=== PATIENT | female | born 1990 | race Caucasian/White ===

== ENCOUNTER 2016-10-03 18:05 | Emergency (ER) | payer OTHER ==
[~2016-10-03] VITALS: Ht 160 cm; Wt 56.8 kg
[~2016-10-03 18:05] MED LIST: DOCU-41 PO; IBUP-1827 PO; MULT1TAB32 PO; ONDA8TAB10 PO; OXYC1TAB24 PO; POLY17PO6 PO; [UNRECOGNIZED DRUG - OTHER]; primrose oil
[2016-10-03 18:14] VITALS: BP 137/93; PULSE 63; RESP 20; O2SAT 100
--- NOTE | 2016-10-03 19:42 | ED.REPORT ---
HPI- Female Date of Service October 03, 2016 ED Provider: Darnell Brown DO Patient is a 25 year old female who presents to the ED complaining of lower abdominal pain onset two days ago. Associated symptoms include bilateral flank pain, vaginal spotting for the past two months, diaphoresis, chills and fever. She reports that she had an 2 months ago and than an IUD placed and has been having the pain since. Prior to arrival to the ED, the patient took 800mg at 1600. Nursing Notes Stated Complaint: VAGINAL PAIN DUE TO IUD Chief Complaint: Female Abdominal Pain Nursing Notes Reviewed: Yes Allergies: Coded Allergies: No Known Allergies (Unverified , 01/14/16) Scheduled ([primrose oil ]) 1-2XD Docusate Sodium (Colace) 100 Mg Capsule 100 MG PO BID Multivitamins W-Iron (Daily Vitamin W/Iron) 1 Each Tablet 1 EACH PO DAILY Scheduled PRN Ibuprofen (Ibuprofen) 600 Mg Tablet 600 MG PO Q6H PRN PRN For Pain Ondansetron ODT (Ondansetron ODT) 8 Mg Tab.rapdis 8 MG PO Q4H PRN PRN For Nausea Polyethylene Glycol 3350 (Miralax) 17 Gm Powd.pack 17 GM PO DAILY PRN PRN For Constipation oxyCODONE-Acetaminophen 5-325 mg (oxyCODONE-Acetaminophen 5-325 mg) 1 Each Tablet 1-2 TAB PO Q4H PRN PRN For Pain Miscellaneous Medications ([ruth]) General Time Seen by MD: 19:42 Chief Complaint Abdominal pain... Hx Obtained From: Patient Arrived By: Walk-in Sudden in Onset?: No Onset Occurred: 2 days ago Symptom Duration: Since onset Location: : Abdomen lower: Suprapubic Radiation: Flank left Flank right Associated with: Reports: Fever, Nausea Sexual History / Control: Reports IUD Recent Healthcare: No recent hospitalization, Recent doctor visit Past Medical History Past Medical History Small bowel obstruction Past Surgical History Smoking History Current Every Day Smoker Social History Alcohol Use: "Social" Drug Use: THC Other Social History: Good social support Ambulatory Status Independent Review of Systems Constitutional: Reports: Chills, Fever GI: Reports: Abdominal pain, Nausea Female: Reports: Flank pain, Pelvic pain, Vaginal bleeding - abnl, Denies: Skin: Reports Diaphoresis Complete sys rev & neg: except as marked. Respiratory: Denies: Non-productive cough, Shortness of breath Physical Exam Initial Vital Signs Vital Signs (First) Date Time Temp Pulse Resp B/P Pulse Ox O2 Delivery O2 Flow Rate FiO2 10/03/16 18:14 36.6 63 20 137/93 100 Room Air Initial VS: Reviewed Female Genitourinary: Change Coordinator present, Atraumatic, External genitalia NL, No bleeding, No adnexal mass, No adnexal tenderness General/Constitutional: Awake, Alert, No acute distress Respiratory / Chest: Atraumatic, No respiratory distress Cardiovascular: Heart rate NL, Regular rhythm, Heart sounds NL Abdomen: Atraumatic, Soft Tenderness/Guarding/Rebound: Positive: Tender LLQ..., Tender RLQ... Skin: Atraumatic, Color NL, No rash clammy Head / Eyes: Atraumatic, Normocephalic, PERRL, EOMI Neurologic: Oriented X3, Speech NL, No motor deficits, No sensory deficits Psychiatric: Affect NL, Mood NL Interpretation & Diagnostics Interpretation & Diagnostics: OBSTETRICS ULTRASOUND: IMPRESSION: 1. Endometrial thickness is 8mm. No evidence of a mass. IUD in place. 2. Ovaries are normal size. Follicular changes of the right ovary. No adnexal mass or cyst. 3. 12x 7mm rounded lesion in the anterior myometrium is nonspecific but may represent a tiny fibroid. at 2217 Lab Results Interpretation Result Diagram: 10/03/16 2018 10/03/16 2018 Test 10/03/16 19:31 10/03/16 20:18 Hold Urine Received (Received) White Blood Count 7.0th/mm3 (3.8-10.1) Red Blood Count 4.29mil/mm3 (3.90-5.20) Hemoglobin 13.9g/dL (12.0-15.6) Hematocrit 40.5% (35.0-46.0) Mean Corpuscular Volume 94.4fL (81-100) Mean Corpuscular Hemoglobin 32.4pg (27.0-35.0) Mean Corpuscular Hemoglobin Concent 34.3% (32.0-37.0) Red Cell Distribution Width 12.4% (12.3-15.4) Platelet Count 261bil/L (150-400) Neutrophils (%) (Auto) 47.4% (40-74) Lymphocytes (%) (Auto) 42.9% (14-46) Monocytes (%) (Auto) 8.3% (4-12) Eosinophils (%) (Auto) 0.9% (0-5) Basophils (%) (Auto) 0.4% (0-3) Sodium Level 139mEq/L (134-144) Potassium Level 3.6mEq/L (3.5-5.2) Chloride Level 103mEq/L (97-108) Carbon Dioxide Level 22mmol/L (18-29) Blood Urea Nitrogen 8mg/dL (6-20) Creatinine 0.38mg/dL (0.57-1.00) Estimat Glomerular Filtration Rate 291mL/min (>59) Glucose Level 93mg/dL (60-99) Calcium Level 9.0mg/dL (8.5-10.1) Magnesium Level 1.9mg/dL (1.6-2.6) Total Bilirubin 0.8mg/dL (0.0-1.2) Aspartate Amino Transf (AST/SGOT) 19U/L (0-50) Alanine Aminotransferase (ALT/SGPT) 15U/L (0-32) Alkaline Phosphatase 48U/L (25-150) Total Protein 7.0g/dL (6.4-8.4) Albumin 4.3g/dL (3.4-5.0) Lipase 21U/L (13-60) HCG Beta Subunit 0.500mIU/mL Hold Jarvis Top Tube Received (Received) Re-Eval/Medical Decision Med Decision/Clinical Course The IUD was removed and Tracy felt much better. We will place her on doxycycline for possible endometrial infection. Course of opiates for pain. Recommend close outpatient follow-up. Re-Evaluation/Progress #1: Time of Eval: 20:42 Patient Status: Mild relief Re-Evaluation/Progress #2: Time of Eval: 22:02 Re-Evaluation/Progress Note: Discussed ultrasound results and plan for IUD removal awaitring results. The patient understands and agrees to the plan for the IUD removal. All questions were addressed. Re-Evaluation/Progress #3: Time of Eval: 00:38 Re-Evaluation/Progress Note: Discussed plan for follow up and discharge. The patient understands and agrees to the plan. All questions were addressed. Counseled Regarding: Diagnosis, Lab results, Need for follow-up, When/why to return to ED Discharge & Departure Impression: Primary Impression: Pelvic pain Additional Impression: Complication of intrauterine device (IUD) Device complication type: unspecified Encounter type: subsequent encounter Qualified Code: T83.9XXD - Unspecified complication of genitourinary prosthetic device, implant and graft, subsequent encounter Disposition: Home Discharge Condition All VS Reviewed: Yes Condition: Stable Patient Instructions: Intrauterine Device (GEN), Pelvic Pain in Women (ED) Additional Instructions: We have sent a urine sample for specialized testing for sexually transmitted infections. This will be available within 3-4 days. In the meantime take doxycycline twice daily for 7 days. The intrauterine device was successfully removed. You need to use barrier method or other forms of control to prevent . He may take 1-2 [place] every 6 hours as needed for pain. Set up a follow-up with referral tab card press operator to review the ultrasound as well as a send out labs. Return if any problems or any new or worsening symptoms. Do not drive or drink alcohol or consume acetaminophen taking the [place]. Referrals: Hadley Robertson MD (PCP) Cruz Cresw MD Attestation Portions of this note were transcribed by Danielle Urbina. I, Dr. Brown personally performed the history, physical exam and medical decision-making; I reviewed and confirmed the accuracy of the information in the transcribed note. Signed by: Milind Mcdowell, 10/03/16 and [id number] copies to: Hadley Robertson MD; Cruz Crews MD, Todd P DO October 03, 2016 19:42 Kenia Urbina October 03, 2016 19:48
[2016-10-03 20:30] LABS: BASOPHILS % (AUTO) 0.4 % (0-3); EOSINOPHILS % (AUTO) 0.9 % (0-5); MONOCYTES % (AUTO) 8.3 % (4-12); Mean Corpuscular Hemoglobin 32.4 pg (27.0-35.0); Mean Corpuscular Volume 94.4 fL (81-100); NEUTROPHILS % (AUTO) 47.4 % (40-74); Platelet Count 261 bil/L (150-400)
[2016-10-03] MEDS ORDERED: Ondansetron 2 mg/mL 2 mL Inj IVPUSH PRN (20:45)
[2016-10-03] MEDS: HYDROmorphone 0.5 mg/0.5 mL iSecure Syringe IVPUSH PRN ×4 (20:50→23:41)
[2016-10-03 20:51] LABS: Magnesium 1.9 mg/dL (1.6-2.6)
[2016-10-03 20:52] VITALS: BP 130/67; PULSE 54; O2SAT 98
[2016-10-03] MEDS ORDERED: Cefotetan Inj 2,000 MG in IV Premix 1 EACH IV SCH (21:58)
[2016-10-03 22:41] VITALS: BP 132/71; PULSE 58; O2SAT 99
[2016-10-04] MEDS ORDERED: _HYDROcodone/APAP 5-325 mg Tablet PO PRN (00:25)
[2016-10-04 00:52] VITALS: BP 128/70; PULSE 60; RESP 16; O2SAT 100
--- NOTE | 2016-10-04 08:34 | DRSVH ---
PROCEDURE: US PELVIC SONOGRAM + TRANSVAGINAL SONOGRAM INDICATIONS: pelvic pain, TECHNIQUE: Real-time scanning was performed of the pelvic organs, with image documentation. Additional endovagi nal scanning was necessary due to incomplete visualization of the adnexal and endometrial structures by transabdominal scanning. COMPARISON: None. FINDINGS: (orthogonal measurements) Uterus size: 9.19 cm, 2.96 cm, 5.04 cm, 9.72 cm, Endometrium thickness: 7.80 mm Right ovary size: 1.89 cm, 1.89 cm, 2.02 cm, Left ovary size: 3.05 cm, 1.02 cm, 2.10 cm Transabdominal scanning: Limited scanning through the kidneys shows no hydronephrosis. No pathologi c free abdominal or pelvic fluid. Endovaginal scanning: Uterus: Uterus is normal in size and appearance. Endometrium is within normal physiologic limits. Intrauterine device present centrally positioned within the endometrial complex. Subcentimeter anter ior intramural fibroid is present. Ovaries: Within normal physiologic limits, with follicular cysts. IMPRESSION: 1. Intrauterine device present visualized within the central endometrial complex. 2. Subcentimeter anterior intramural fibroid. 3. Follicular cysts bilaterally. Note: These findings are concordant with the preliminary interpretation. Dictated by: Reddy MORROW Interpreted: Ekaterina Hammond MD on 10/04/2016 at 8:31 Transcribed by: LIGIA on 10/04/2016 at 8:34 Approved by: Ekaterina Hammond M.D. on 10/06/2016 at 9:36
[2016-10-04 09:00] LABS: APPEARANCE,URINE CLEAR (CLEAR,HAZY); COLOR,URINE YELLOW (YELLOW); OCCULT BLOOD,URINE NEGATIVE (NEGATIVE); UROBILINOGEN,URINE NORMAL (NORMAL)
== END 2016-10-04 00:53 | disposition home or self-care (01) ==
LOC: SED 18:05
DX: T83.84XA Pain due to genitourinary prosthetic devices, implants and grafts, initial encounter (principal); Y84.6 Urinary catheterization as the cause of abnormal reaction of the patient, or of later complication, without mention of misadventure at the time of the procedure; Y92.89 Other specified places as the place of occurrence of the external cause; Y93.89 Activity, other specified; Y99.8 Other external cause status; F17.200 Nicotine dependence, unspecified, uncomplicated
CPT/HCPCS: 36415; 76830; 76856; 80053; 81000; 81025; 83690; 83735; 84702; 85025; 87491; 87591; 96365; 96375; 96376; 99285; J1170; J2405

== ENCOUNTER 2016-11-14 18:47 | Emergency (ER) | payer OTHER ==
[~2016-11-14] VITALS: Ht 160 cm; Wt 59.1 kg
[2016-11-14 18:58] VITALS: BP 113/75; PULSE 67; RESP 16; O2SAT 97
[2016-11-14 20:56] LABS: BASOPHILS % (AUTO) 0.3 % (0-3); EOSINOPHILS % (AUTO) 2.3 % (0-5); MONOCYTES % (AUTO) 11.7 % (4-12); Mean Corpuscular Hemoglobin 32.7 pg (27.0-35.0); Mean Corpuscular Volume 95.8 fL (81-100); NEUTROPHILS % (AUTO) 50.9 % (40-74); Platelet Count 338 bil/L (150-400)
--- NOTE | 2016-11-14 20:59 | ED.REPORT ---
HPI-Abd Pain F Under 38 Date of Service Nov 14, 2016 ED Provider: Kevin Patrick DO Pt is a 25 year old female with a history of and IUD who presents to the ED complaining of cramping abdominal pain onset 2 days ago. She c/o associated fever, nausea, and vomiting. She denies any other symptoms. The pt reports that she had surgery for bowel obstruction 5 days ago at [place], and was recently discharged. Nursing Notes Stated Complaint: POST-OP ABDOMINAL CRAMPING Chief Complaint: Female Abdominal Pain Nursing Notes Reviewed: Yes Allergies: Coded Allergies: No Known Allergies (Unverified , 01/14/16) Scheduled ([primrose oil ]) 1-2XD Docusate Sodium (Colace) 100 Mg Capsule 100 MG PO BID Multivitamins W-Iron (Daily Vitamin W/Iron) 1 Each Tablet 1 EACH PO DAILY Scheduled PRN Ibuprofen (Ibuprofen) 600 Mg Tablet 600 MG PO Q6H PRN PRN For Pain Ondansetron ODT (Ondansetron ODT) 8 Mg Tab.rapdis 8 MG PO Q4H PRN PRN For Nausea Polyethylene Glycol 3350 (Miralax) 17 Gm Powd.pack 17 GM PO DAILY PRN PRN For Constipation oxyCODONE-Acetaminophen 5-325 mg (oxyCODONE-Acetaminophen 5-325 mg) 1 Each Tablet 1-2 TAB PO Q4H PRN PRN For Pain Miscellaneous Medications ([ruth]) General Time Seen by MD: 20:58 Chief Complaint Abdominal pain Hx Obtained From: Patient Arrived By: Walk-in Sudden in Onset?: No Onset Occurred: 2 days ago Symptom Duration: Since onset Location: : Diffuse Quality: Cramping, Painful Severity: Current: Moderate Severity: Maximum: Moderate Recent Healthcare: Recent doctor visit Similar Sx Previous: No Past Medical History Past Medical History Small bowel obstruction Past Surgical History Smoking History Current Every Day Smoker Social History Alcohol Use: "Social" Drug Use: THC Other Social History: Good social support Ambulatory Status Independent Review of Systems Constitutional: Reports: Fever Respiratory: Denies: Non-productive cough GI: Reports: Abdominal pain, Nausea, Vomiting, Denies: Diarrhea Complete sys rev & neg: except as marked. Physical Exam Initial Vital Signs Vital Signs (First) Date Time Temp Pulse Resp B/P Pulse Ox O2 Delivery O2 Flow Rate FiO2 11/14/16 18:58 37.1 67 16 113/75 97 Room Air Initial VS: Reviewed Head / Eyes: Atraumatic, Normocephalic Extremities: Vascular intact, Neuro intact Skin: Warm, Dry, No cyanosis Neurologic: Alert, Oriented, Nonfocal Psychiatric: Mood/affect normal, Behavior normal General/Constitutional: Awake, Alert, Cooperative Respiratory / Chest: Atraumatic, Breath sounds NL, Breath sounds = bilat Cardiovascular: Heart rate NL, Regular rhythm, Heart sounds NL Abdomen: Soft, No rebound Tenderness/Guarding/Rebound: Positive: Tender diffuse Bowel Sounds / Distention: Positive: Bowel sounds hyperactive Abdomen is distended. Back: Atraumatic, Full range of motion Interpretation & Diagnostics Lab Results Interpretation Result Diagram: 11/14/16204711/14/162047 Test 11/14/16 20:40 11/14/16 20:48 11/14/16 21:07 11/14/16 21:08 Hold Jarvis Top Tube Received (Received) White Blood Count 7.1th/mm3 (3.8-10.1) Red Blood Count 4.28mil/mm3 (3.90-5.20) Hemoglobin 14.0g/dL (12.0-15.6) Hematocrit 41.0% (35.0-46.0) Mean Corpuscular Volume 95.8fL (81-100) Mean Corpuscular Hemoglobin 32.7pg (27.0-35.0) Mean Corpuscular Hemoglobin Concent 34.1% (32.0-37.0) Red Cell Distribution Width 13.1% (12.3-15.4) Platelet Count 338bil/L (150-400) Neutrophils (%) (Auto) 50.9% (40-74) Lymphocytes (%) (Auto) 34.4% (14-46) Monocytes (%) (Auto) 11.7% (4-12) Eosinophils (%) (Auto) 2.3% (0-5) Basophils (%) (Auto) 0.3% (0-3) Sodium Level 138mEq/L (134-144) Potassium Level 3.8mEq/L (3.5-5.2) Chloride Level 101mEq/L (97-108) Carbon Dioxide Level 24mmol/L (18-29) Blood Urea Nitrogen 4mg/dL (6-20) Creatinine 0.42mg/dL (0.57-1.00) Estimat Glomerular Filtration Rate 259mL/min (>59) Glucose Level 89mg/dL (60-99) Calcium Level 8.8mg/dL (8.5-10.1) Magnesium Level 2.1mg/dL (1.6-2.6) Total Bilirubin 0.3mg/dL (0.0-1.2) Aspartate Amino Transf (AST/SGOT) 17U/L (0-50) Alanine Aminotransferase (ALT/SGPT) 13U/L (0-32) Alkaline Phosphatase 57U/L (25-150) Total Protein 7.4g/dL (6.4-8.4) Albumin 4.1g/dL (3.4-5.0) Lipase 31U/L (13-60) Hold Urine Received (Received) Urine Color Yellow (YELLOW) Urine Appearance Hazy (CLEAR,HAZY) Urine pH 5.0 (5.0-8.0) Urine Specific [place] 1.005 (1.003-1.035) Urine Protein Negativemg/dL (NEG,TRACE) Urine Glucose (UA) Negativemg/dL (NEGATIVE) Urine Ketones Negativemg/dL (NEGATIVE) Urine Occult Blood Negative (NEGATIVE) Urine Nitrite Negative (NEGATIVE) Urine Bilirubin Negative (NEGATIVE) Urine Urobilinogen Normalmg/dL (NORMAL) Urine Leukocyte Esterase Moderate (NEGATIVE) Urine RBC 0-2/hpf (0-2) Urine WBC 11-50/hpf (0-5) Urine Epithelial Cells Moderate/hpf (NONE-MOD) Urine Crystals None seen (NONE SEEN) Urine Bacteria Few/hpf (NONE-FEW) Urine Hyaline Casts None/lpf (NONE) Urine Granular Casts None seen (NONE SEEN) Urine Waxy Casts None seen (NONE SEEN) Urine Red Blood Cell Casts None seen (NONE SEEN) Urine White Blood Cell Casts None seen (NONE SEEN) Urine Mucus None seen (None Seen) Urine Trichomonas None seen (NONE SEEN) Urine Yeast None (NONE SEEN) Urinalysis Comment None Urine Culture Reflexed Indicated X-Ray Abdominal Interpretation Few scattered air fluid levels. Interpretation / Wet Read by: Wet read ED physician Re-Eval/Medical Decision Med Decision/Clinical Course Tracy was fluid resuscitated and treated symptomatically. Her laboratory work is reassuring. The x-ray did not show evidence of bowel obstruction. Overall she did well. She will be discharged home. Clear liquid diet. Oral pain medication and oral nausea medications. Next a follow-up with primary care or back in the ER if symptoms have not resolved completely. Routine opiate warnings given. Source of Hx: Old records Re-Evaluation/Progress : Time of Eval: 23:50 )( Re-Eval Abdomen: Soft Patient Status: Condition improved Re-Evaluation/Progress Note: Pt rechecked. Informed pt of plan for discharge. Pt understands and agrees with plan for discharge. F/U instructions and RTER warnings given. All questions addressed. Counseled Regarding: Diagnosis, Lab results Discharge & Departure Primary Impression: Abdominal pain Abdominal location: unspecified location Qualified Code: R10.9 - Unspecified abdominal pain Additional Impression: Vomiting Vomiting type: unspecified Vomiting Intractability: unspecified Nausea presence: unspecified Qualified Code: R11.10 - Vomiting, unspecified Disposition: Home Discharge Condition All VS Reviewed: Yes Condition: Stable Patient Instructions: Bowel Obstruction (ED) Additional Instructions: You may be developing another bowel obstruction. Drink clear liquids tonight. Take 1-2 Percocet every 6 hours as needed. Do not drive or drink alcohol or consume acetaminophen while taking Percocet. Take Zofran 1 every 8 hours as directed. Follow up for a recheck tomorrow unless your symptoms are resolved. Otherwise, call your primary care provider tomorrow for a follow up appointment. Return to the Emergency Department for any new or worsening symptoms. Referrals: Hadley Robertson MD (PCP) Milind Attestation Portions of this note were transcribed by Kala Quijano. I, Dr. Brown personally performed the history, physical exam and medical decision-making; I reviewed and confirmed the accuracy of the information in the transcribed note. Signed by: Milind Mcginnis, 11/14/16 and 23:50. copies to: Hadley Robertson MD, Todd P DO Nov 14, 2016 20:59 Kala Mejias Nov 14, 2016 22:26
[2016-11-14 21:21] LABS: Magnesium 2.1 mg/dL (1.6-2.6)
[2016-11-14 21:24] LABS: APPEARANCE,URINE HAZY (CLEAR,HAZY); COLOR,URINE YELLOW (YELLOW); OCCULT BLOOD,URINE NEGATIVE (NEGATIVE); UROBILINOGEN,URINE NORMAL (NORMAL)
[2016-11-14] MEDS: Sodium Chloride LOK Flush 10 mL Syringe IVFLUSH SCH (22:26)
[2016-11-14] MEDS: Ondansetron 2 mg/mL 2 mL Inj IVPUSH PRN ×2 (22:26→22:55)
[2016-11-14] MEDS: HYDROmorphone 0.5 mg/0.5 mL iSecure Syringe IVPUSH PRN ×2 (22:26→22:55)
[2016-11-15] MEDS ORDERED: Ondansetron 2 mg/mL 2 mL Inj IVPUSH PRN
[2016-11-15] MEDS ORDERED: _Ondansetron ODT 4 mg Tablet PO PRN
[2016-11-15] MEDS ORDERED: HYDROmorphone 1 mg/mL Inj IVPUSH ONE
[2016-11-15] MEDS ORDERED: 0.9% Sodium Chloride 1,000 ML IV SCH
[2016-11-15] MEDS ORDERED: _oxyCODONE/APAP 5-325 mg Tablet PO PRN
[2016-11-15] MEDS: Sodium Chloride LOK Flush 10 mL Syringe IVFLUSH SCH (00:08)
[2016-11-15] MEDS: Ondansetron 2 mg/mL 2 mL Inj IVPUSH PRN ×2 (00:08→00:56)
[2016-11-15 00:56] VITALS: BP 118/53; PULSE 58; RESP 16; O2SAT 99
[2016-11-15] MEDS: HYDROmorphone 0.5 mg/0.5 mL iSecure Syringe IVPUSH PRN (00:56)
[2016-11-15 01:12] VITALS: BP 118/53; PULSE 58; RESP 16; O2SAT 99
--- NOTE | 2016-11-15 09:24 | DRSVH ---
PROCEDURE: X-RAY ACUTE ABDOMINAL SERIES ([id number]) INDICATIONS: bowel obstruction TECHNIQUE: One view chest and two views of the abdomen were acquired. COMPARISON: None. FINDINGS: Surgical changes and devices: None. Chest: Lungs are clear. Heart size is normal. No pleural effusions. No pneumoperitoneum. Abdomen: Mild fecal loading, otherwise bowel gas pattern is normal. No suspicious calcifications. V isualized solid organ contours appear normal. Bones: No suspicious bony lesions. IMPRESSION: 1. Mild fecal loading and was normal bowel gas pattern. Dictated by: Reddy Love [facility] Interpreted: Watson Nair MD on 11/15/2016 at 9:02 Transcribed by: HALLIE on 11/15/2016 at 9:23 Approved by: Watson Nair M.D. on 11/15/2016 at 16:26
== END 2016-11-15 01:12 | disposition home or self-care (01) ==
LOC: SED 18:47
DX: R10.84 Generalized abdominal pain (principal); R11.2 Nausea with vomiting, unspecified; R50.9 Fever, unspecified; F17.200 Nicotine dependence, unspecified, uncomplicated; Z98.890 Other specified postprocedural states; Z87.19 Personal history of other diseases of the digestive system; Z97.5 Presence of (intrauterine) contraceptive device
CPT/HCPCS: 36415; 74022; 80053; 81000; 81025; 83690; 83735; 85025; 87086; 87088; 87186; 96361; 96374; 96375; 96376; 99285; J1170; J2405; J7030

== ENCOUNTER 2016-11-22 09:25 | Emergency (ER) | payer OTHER ==
[~2016-11-22] VITALS: Ht 160 cm; Wt 63.6 kg
[2016-11-22 09:28] VITALS: BP 107/75; PULSE 90; RESP 20; O2SAT 98
--- NOTE | 2016-11-22 09:36 | ED.REPORT ---
HPI-Abd Pain F Under 40 Date of Service Nov 22, 2016 ED Provider: Mayank Webb MD The patient is a 25 year old female with history of recent small bowel obstruction requiring surgery, who presents to the emergency department complaining of severe diffuse abdominal pain. The patient was diagnosed with a small bowel obstruction a few weeks ago and had surgery completed. She was seen in the ED about 1 week ago for continued abdominal pain and vomiting. Since this visit she has been on a clear liquid diet until yesterday she added some solid foods. This morning she woke up in severe pain. She has also experienced nausea and multiple episodes of vomiting. She has not been passed any stool for a few days. She also reports a subjective fever. She denies dysuria, hematuria or bloody emesis. Nursing Notes Stated Complaint: ABDOMINAL PAIN Chief Complaint: Female Abdominal Pain Nursing Notes Reviewed: Yes Allergies: Coded Allergies: No Known Allergies (Unverified , 01/14/16) Scheduled ([primrose oil ]) 1-2XD Ciprofloxacin (Ciprofloxacin) 500 Mg Tablet 500 MG PO BID Docusate Sodium (Colace) 100 Mg Capsule 100 MG PO BID Multivitamins W-Iron (Daily Vitamin W/Iron) 1 Each Tablet 1 EACH PO DAILY Scheduled PRN Ibuprofen (Ibuprofen) 600 Mg Tablet 600 MG PO Q6H PRN PRN For Pain Ondansetron ODT (Ondansetron ODT) 8 Mg Tab.rapdis 8 MG PO Q4H PRN PRN For Nausea Ondansetron ODT (Zofran ODT) 4 Mg Tablet 4 MG PO Q4H PRN PRN For Nausea Polyethylene Glycol 3350 (Miralax) 17 Gm Powd.pack 17 GM PO DAILY PRN PRN For Constipation oxyCODONE-Acetaminophen 5-325 mg (oxyCODONE-Acetaminophen 5-325 mg) 1 Each Tablet 1-2 TAB PO Q4H PRN PRN For Pain Miscellaneous Medications ([ruth]) General Time Seen by MD: 09:31 Chief Complaint Abdominal pain Hx Obtained From: Patient, Spouse Arrived By: Walk-in Sudden in Onset?: Yes Onset Occurred: Yesterday Symptom Duration: Since onset Progression since Onset: Constant, Gradually worsening Location: : Diffuse Quality: Painful Severity: Current: Moderate Severity: Maximum: Severe Recent Healthcare: Recent doctor visit, Recent hospitalization, Previous surgery, Prior workup Similar Sx Previous: Yes Past Medical History Past Medical History Small bowel obstruction Past Surgical History SBO surgery Family History Noncontributory Smoking History Current Every Day Smoker Social History Alcohol Use: "Social" Drug Use: THC Other Social History: Good social support, Local resident Ambulatory Status Independent Review of Systems Constitutional: Reports: Fever (subjective) GI: Reports: Abdominal pain, Constipation, Nausea, Vomiting, Denies: Bloody/tarry stool, Hematemesis, Hematochezia Female: Denies: Dysuria, Hematuria Complete sys rev & neg: except as marked. Physical Exam Initial Vital Signs Vital Signs (First) Date Time Temp Pulse Resp B/P Pulse Ox O2 Delivery O2 Flow Rate FiO2 11/22/16 09:28 36.8 90 20 107/75 98 11/22/16 11:47 Room Air Initial VS: Reviewed Head / Eyes: Atraumatic, Normocephalic, PERRL ENT: Mucous membranes moist, Conjunctiva normal, No scleral icterus Neck: Supple, Non-tender, Full range of motion Lymphatic: No lymphadenopathy Extremities: Vascular intact, Neuro intact, No swelling, No tenderness Skin: Warm, Dry, No cyanosis Neurologic: Alert, Oriented, Nonfocal Psychiatric: Mood/affect normal, Behavior normal, Normal thought content General/Constitutional: Awake, Alert, No acute distress, Cooperative Appearance / Presentation: Positive: In pain, Uncomfortable Respiratory / Chest: Atraumatic, Breath sounds NL, Breath sounds = bilat, No respiratory distress, No rales, No rhonchi, No wheezing Cardiovascular: Heart rate NL, Regular rhythm, Heart sounds NL, No gallop, No murmurs, No rubs, Peripheral circulation NL Abdomen: Soft, No guarding, No rebound, No distention, No hernia, No palpable mass, No pulsatile mass Tenderness/Guarding/Rebound: Positive: Tender diffuse Bowel Sounds / Distention: Positive: Bowel sounds hyperactive Back: Inspection NL, Non-tender, No CVA tenderness Interpretation & Diagnostics Lab Results Interpretation Result Diagram: 11/22/16 0955 11/22/16 0955 Test 11/22/16 09:55 11/22/16 10:20 White Blood Count 10.2th/mm3 (3.8-10.1) Red Blood Count 4.71mil/mm3 (3.90-5.20) Hemoglobin 15.4g/dL (12.0-15.6) Hematocrit 44.0% (35.0-46.0) Mean Corpuscular Volume 93.4fL (81-100) Mean Corpuscular Hemoglobin 32.7pg (27.0-35.0) Mean Corpuscular Hemoglobin Concent 35.0% (32.0-37.0) Red Cell Distribution Width 12.7% (12.3-15.4) Platelet Count 402bil/L (150-400) Neutrophils (%) (Auto) 62.4% (40-74) Lymphocytes (%) (Auto) 30.6% (14-46) Monocytes (%) (Auto) 6.0% (4-12) Eosinophils (%) (Auto) 0.4% (0-5) Basophils (%) (Auto) 0.3% (0-3) Sodium Level 137mEq/L (134-144) Potassium Level 4.1mEq/L (3.5-5.2) Chloride Level 101mEq/L (97-108) Carbon Dioxide Level 19mmol/L (18-29) Blood Urea Nitrogen 7mg/dL (6-20) Creatinine 0.47mg/dL (0.57-1.00) Estimat Glomerular Filtration Rate 228mL/min (>59) Glucose Level 94mg/dL (60-99) Lactic Acid Level 1.5mmol/L (0.4-2.0) Calcium Level 9.3mg/dL (8.5-10.1) Magnesium Level 2.0mg/dL (1.6-2.6) Total Bilirubin 0.4mg/dL (0.0-1.2) Aspartate Amino Transf (AST/SGOT) 25U/L (0-50) Alanine Aminotransferase (ALT/SGPT) 28U/L (0-32) Alkaline Phosphatase 55U/L (25-150) Total Protein 8.0g/dL (6.4-8.4) Albumin 4.5g/dL (3.4-5.0) Lipase 41U/L (13-60) Hold Jarvis Top Tube Received (Received) Urine Color Yellow (YELLOW) Urine Appearance Hazy (CLEAR,HAZY) Urine pH 8.0 (5.0-8.0) Urine Specific [place] 1.010 (1.003-1.035) Urine Protein Negativemg/dL (NEG,TRACE) Urine Glucose (UA) Negativemg/dL (NEGATIVE) Urine Ketones Negativemg/dL (NEGATIVE) Urine Occult Blood Negative (NEGATIVE) Urine Nitrite Negative (NEGATIVE) Urine Bilirubin Negative (NEGATIVE) Urine Urobilinogen Normalmg/dL (NORMAL) Urine Leukocyte Esterase Small (NEGATIVE) Urine RBC 0-2/hpf (0-2) Urine WBC 11-50/hpf (0-5) Urine Epithelial Cells Occasional/hpf (NONE-MOD) Urine Crystals None seen (NONE SEEN) Urine Bacteria Many/hpf (NONE-FEW) Urine Hyaline Casts None/lpf (NONE) Urine Granular Casts None seen (NONE SEEN) Urine Waxy Casts None seen (NONE SEEN) Urine Red Blood Cell Casts None seen (NONE SEEN) Urine White Blood Cell Casts None seen (NONE SEEN) Urine Mucus None seen (None Seen) Urine Trichomonas None seen (NONE SEEN) Urine Yeast None (NONE SEEN) Urinalysis Comment None Urine Culture Reflexed Indicated X-Ray Abdominal Interpretation No acute disease. No bowel obstruction. Interpretation / Wet Read by: Interpret - Radiologist Re-Eval/Medical Decision Med Decision/Clinical Course Med Decision/Clinical Course: 25-year-old female with recent small bowel obstruction requiring surgery presenting with abdominal pain nausea or vomiting. Abdomen is soft mild diffuse tenderness. Vital signs are stable. X-ray shows no evidence of obstruction. Urine suggestive of UTI. Her labs are reassuring. Likely UTI. Cannot rule out mild ileus. She is passing gas and stooling. I see no indication for hospitalization and she agrees requests to go home. She will be treated with antibiotics for UTI. One dose Rocephin given. Advised to advance diet slowly. Return precautions given. She will follow-up with her primary doctor tomorrow. Source of Hx: Old records, Family Re-Evaluation/Progress #1: Time of Eval: 11:44 Re-Evaluation/Progress Note: Rechecked the patient. Discussed plan results, diagnosis, and plan for discharge after IV antibiotics and PO trial. All questions were addressed. Re-Evaluation/Progress #2: Time of Eval: 12:50 Re-Evaluation/Progress Note: The patient was able to tolerate PO. She will be discharged home. Counseled Regarding: Diagnosis, Lab results, Need for follow-up, When/why to return to ED Discharge & Departure Primary Impression: Urinary tract infection Urinary tract infection type: site unspecified Hematuria presence: without hematuria Qualified Code: N39.0 - Urinary tract infection, site not specified Additional Impression: Abdominal pain Abdominal location: unspecified location Qualified Code: R10.9 - Unspecified abdominal pain Disposition: Home Discharge Condition All VS Reviewed: Yes Condition: Stable Patient Instructions: Urinary Tract Infection in Women (ED) Additional Instructions: Thank you for entrusting us with your care today. Your x-ray does not show evidence of an obstructions. Your urinalysis showed evidence of a urinary tract infection. Use the medications as prescribed. Make sure to drink plenty of fluids. When you feel like eating start with foods that are easy on your stomach, like: chicken noodle soup, rice, applesauce, toast, etc. Followup with your regular doctor tomorrow for re-evaluation. Return to the emergency department for any fevers, worsening abdominal pain, nausea/vomiting, back pain, other new or concerning symptoms. Referrals: Hadley Robertson MD (PCP) Scribe Attestation Portions of this note were transcribed by Dpiti Hernandez. I, Dr. Webb personally performed the history, physical exam and medical decision-making; I reviewed and confirmed the accuracy of the information in the transcribed note. Signed by: Milind Domínguez, 11/22/2016 at 1300. copies to: Hadley Robertson MD, Ben M MD Nov 22, 2016 09:36 Dipti Hernandez Nov 22, 2016 09:49
[2016-11-22] MEDS ORDERED: 0.9% Sodium Chloride 1,000 ML IV ONE ×2 (09:50→11:50)
[2016-11-22] MEDS: Ondansetron 2 mg/mL 2 mL Inj IVPUSH PRN ×2 (10:01→10:52)
[2016-11-22 10:08] LABS: BASOPHILS % (AUTO) 0.3 % (0-3); EOSINOPHILS % (AUTO) 0.4 % (0-5); Mean Corpuscular Hemoglobin 32.7 pg (27.0-35.0); Mean Corpuscular Volume 93.4 fL (81-100); NEUTROPHILS % (AUTO) 62.4 % (40-74); Platelet Count 402 bil/L (150-400)
[2016-11-22 11:13] LABS: COLOR,URINE YELLOW (YELLOW)
[2016-11-22 11:14] LABS: APPEARANCE,URINE HAZY (CLEAR,HAZY); OCCULT BLOOD,URINE NEGATIVE (NEGATIVE); UROBILINOGEN,URINE NORMAL (NORMAL)
--- NOTE | 2016-11-22 11:20 | DRSVH ---
PROCEDURE: X-RAY ACUTE ABDOMINAL SERIES ([id number]) INDICATIONS: abd pain, vomiting s/p sbo TECHNIQUE: One view chest and two views of the abdomen were acquired. COMPARISON: [facility], CR, XR ABD ACUTE SERIES 3VW, 11/14/2016, 22:07. FINDINGS: Surgical changes and devices: None. Chest: Lungs are clear. Heart size is normal. No pleural effusions. No pneumoperitoneum. Abdomen: Bowel gas pattern is normal. No suspicious calcifications. Visualized solid organ contour s appear normal. Bones: No suspicious bony lesions. IMPRESSION: No acute disease No bowel obstruction. Dictated by: Jong Crook M.D. on 11/22/2016 at 11:02 Approved by: Jong Crook M.D. on 11/22/2016 at 11:03
[2016-11-22] MEDS ORDERED: cefTRIAXone Inj 2,000 MG in Dextrose 5% Minibag Plus 50 ML IV ONE (11:30)
[2016-11-22 11:47] VITALS: BP 106/44; PULSE 76; RESP 14; O2SAT 98
[2016-11-22] MEDS ORDERED: CIPR-198 PO (12:19)
[2016-11-22] MEDS ORDERED: MetoCLOpramide 5 mg/mL 2 mL Inj IVPUSH ONE (13:05)
[2016-11-22] MEDS ORDERED: ONDA4TAB9 PO (13:35)
[2016-11-22 13:45] VITALS: BP 110/68; PULSE 92; RESP 18; O2SAT 99
== END 2016-11-22 13:30 | disposition home or self-care (01) ==
LOC: SED 09:25
DX: N39.0 Urinary tract infection, site not specified (principal); R11.2 Nausea with vomiting, unspecified; K59.00 Constipation, unspecified; R50.9 Fever, unspecified; B96.20 Unspecified Escherichia coli [E. coli] as the cause of diseases classified elsewhere
CPT/HCPCS: 36415; 74022; 80053; 81000; 81025; 83605; 83690; 83735; 85025; 87086; 87088; 87186; 96361; 96365; 96375; 96376; 99285; J0696; J2270; J2405; J2765; J7030